=== PATIENT | female | born 1995 | race Caucasian/White ===

== ENCOUNTER 2017-03-09 13:59 | Emergency (ER) | payer OTHER ==
[~2017-03-09] VITALS: Ht 154.9 cm; Wt 76.0 kg
[2017-03-09 14:05] VITALS: Ht 154.9 cm; Wt 76.0 kg
[2017-03-09] MEDS ORDERED: morphine 4 MG/ML VIAL IV STA (14:23)
[2017-03-09] MEDS ORDERED: ONDANSETRON 4 MG INJ IV STA (14:30)
[2017-03-09 14:53] LABS: BASOPHILS % 0.3 % (0.0-2.0); EOSINOPHILS # 0.1 10^3/ul (0.0-0.5); EOSINOPHILS % 1.2 % (0.0-7.0); HEMATOCRIT 39.4 % (37.0-47.0); HEMOGLOBIN 13.7 g/dl (12.0-16.0); LYMPHOCYTES # 2.3 10^3/ul (0.8-2.9); LYMPHOCYTES % 19.7 % (15.0-51.0); MEAN CORPUSCULAR HEMOGLOBIN 30.6 pg (29.0-33.0); MEAN CORPUSCULAR HGB CONC 34.8 g/dl (32.0-37.0); MEAN CORPUSCULAR VOLUME 87.9 fl (82.0-101.0); MEAN PLATELET VOLUME 10.3 fl (7.4-10.4); MONOCYTE # 0.9 10^3/ul (0.3-0.9); MONOCYTES % 7.4 % (0.0-11.0); NEUTROPHIL # 8.3 10^3/ul (1.6-7.5); NEUTROPHILS % 70.9 % (39.0-77.0); PLATELET COUNT 345 10^3/UL (140-415); RED BLOOD COUNT 4.48 10^6/ul (4.20-5.40); RED CELL DISTRIBUTION WIDTH 12.3 % (11.5-14.5); WHITE BLOOD COUNT 11.8 10^3/ul (4.8-10.8)
[2017-03-09 15:10] LABS: ADD UMIC YES; UR ASCORBIC ACID NEGATIVE (NEGATIVE); UR BILIRUBIN (Dip) NEGATIVE (NEGATIVE); UR BLOOD (Dip) 3+ mg/dL (NEGATIVE); UR CLARITY CLOUDY (CLEAR); UR COLOR YELLOW (YELLOW); UR GLUCOSE (Dip) NEGATIVE (NEGATIVE); UR KETONES (Dip) TRACE mg/dL (NEGATIVE); UR LEUKOCYTE ESTERASE (Dip) 2+ Leu/ul (NEGATIVE); UR MUCUS MANY /HPF (NONE SEEN); UR NITRITE (Dip) NEGATIVE (NEGATIVE); UR RBC > 182 /HPF (0-5); UR SPECIFIC GRAVITY (Dip) 1.029 (1.003-1.030); UR SQUAMOUS EPITHELIAL CELL MODERATE /HPF (FEW); UR TOTAL PROTEIN (Dip) 2+ mg/dl (NEGATIVE); UR UROBILINOGEN (Dip) 1+ mg/dL (NEGATIVE)
[2017-03-09 15:30] LABS: ALBUMIN 4.6 g/dl (3.3-4.9); ALBUMIN/GLOBULIN RATIO 1.53; BILIRUBIN,INDIRECT 0.4 mg/dl (0-1.1); BILIRUBIN,TOTAL 0.4 mg/dl (0.2-1.3); CALCIUM 9.6 mg/dl (8.4-10.2); CREATININE 0.73 mg/dl (0.44-1.00); POTASSIUM 3.7 mmol/L (3.5-5.1); TOTAL PROTEIN 7.6 g/dl (6.1-8.1)
--- NOTE | 2017-03-09 16:03 | RADRPT ---
PROCEDURE: CT abdomen and pelvis without contrast. CLINICAL INDICATION: Abdominal pain. TECHNIQUE: CT scan of the abdomen and pelvis without contrast was performed on a multi-slice CT [facility] . Sagittal and coronal reformatted images were obtained from the axial source images. One or more of the following dose reduction techniques were used: - Automated exposure control. - Adjustment of the mA and/or kV according to patient size. - Use of iterative reconstruction technique. DLP 640.6 mGycm. CTDIvol 11.1 mGy COMPARISON: None FINDINGS: The lung bases are clear. There is limited evaluation of the solid viscera from the lack of IV con trast. There is a 2 mm stone in the distal right ureter at the UVJ causing minimal enlargement the right ur eter with trace right-sided perinephric fat stranding. A second nonobstructing right upper pole 2 mm renal stone is also present. Within the left kidney there is a 5 mm stone at the mid kidney which i s nonobstructing. No left-sided ureteral stones or evidence of obstruction is present. There is normal density of the liver with no gross focal lesion or biliary ductal dilatation. The gallbladder is unremarkable without inflammation. The spleen is unremarkable without mass. The adrenal glands are within normal limits without mass. The pancreas is unremarkable without focal lesion or surrounding inflammatory changes. There is no bowel obstruction or focal bowel inflammation. The appendix is unremarkable. There is trace scattered diverticulosis without diverticulitis. There is no free air or free fluid. There a re no enlarged lymph nodes. The aorta is unremarkable and there is no acute osseous abnormality. The uterus and adnexal structures are grossly unremarkable. IMPRESSION: 2 mm distal right ureteral stone at the UVJ causes borderline right-sided ureteral enlargement and t race right-sided perinephric fat stranding. Other nonobstructing bilateral renal calculi are also present. No evidence of bowel obstruction or inflammation. There is no appendicitis. Trace scattered diverti culosis is present without diverticulitis. RPTAT: AA .Jagjit Adair MD, Date Time Electronically viewed and signed by .Jagjit Adair MD, on 03/09/2017 16:03 .J/
[2017-03-09] MEDS ORDERED: CEFTRIAXONE 1 GM/50 ML (PMX) 50 ML IVPB ONE (16:30)
[2017-03-09] MEDS ORDERED: SOD CHLORIDE 0.9% 1,000 ML IV ONE (16:30)
[2017-03-09] MEDS ORDERED: NAPR-260 PO (16:45)
[2017-03-09] MEDS ORDERED: CEPH-443 PO (16:45)
--- NOTE | 2017-03-09 17:43 | ERD ---
ER Documentation Chief Complaint Date/Time DATE: 03/09/17 TIME: 17:40 Chief Complaint Pt with Pelvic pain radiating to R flank x 1hour. HPI 21-year-old female patient with no significant past medical history presents to the ED complaining of right flank pain radiating to her right lower abdomen. Reports that this happened about 1 hour ago. Describes the pain as crampy. Rates the pain a 8 out of 10. Denies any chest pain, shortness of breath, dysuria, nausea, vomiting, diarrhea, constipation, hematuria, urgency, frequency. ROS All systems reviewed and are negative except as per history of present illness. Medications Home Meds Active Scripts Naproxen* (Naprosyn*) 500 Mg Tablet, 500 MG PO BID Y for PAIN AND/OR INFLAMMATION, #30 TAB Prov:JACOBY JOSHI PA-C 03/09/17 Cephalexin* (Keflex*) 500 Mg Capsule, 500 MG PO QID for 7 Days, CAP Prov:JACOBY JOSHI PA-C 03/09/17 PMhx/Soc Medical and Surgical Hx: pt denies Medical Hx, pt denies Surgical Hx Hx Alcohol Use: Yes (SOCIALLY) Hx Substance Use: No Hx Tobacco Use: No Smoking Status: Never smoker Physical Exam Vitals Vital Signs Date Time Temp Pulse Resp B/P Pulse Ox O2 Delivery O2 Flow Rate FiO2 03/09/17 17:45 98.4 75 18 132/82 100 Room Air 03/09/17 14:05 98.2 73 16 154/92 100 Physical Exam Const: [id number], well-nourished. In no acute distress. Head: Atraumatic, normocephalic Eyes: Normal Conjunctiva without injection. No purulent discharge. ENT: Normal external ear, nose. Moist oropharynx without tonsillar exudates. Non -erythematous pharynx. Uvula midline. No drooling. No trismus. Neck: No cervical midline tenderness. Full range of motion. No meningismus. No cervical lymphadenopathy. No JVD. Resp: Clear to auscultation bilaterally. No wheezing, rhonchi, rales, or crackles. No accessory muscle use. No retractions. Cardio: Regular rate and rhythm. No murmurs, rubs or gallops. Abd: Soft, nontender, non distended. Normal bowel sounds. No palpable masses. No rebound tenderness. No guarding. Negative McBurney's point. Negative psoas sign. Negative obturator sign. : See exam in MDM. Skin: No petechiae or rashes Back: No midline tenderness. No CVA tenderness. Ext: No cyanosis, or edema. Neur: Awake and alert. Normal gait. Normal coordination. Psych: Normal Mood and Affect Result Diagram: 03/09/17 1430 03/09/17 1430 Results 24 hrs Laboratory Tests Test 03/09/17 14:30 03/09/17 14:40 White Blood Count 11.810^3/ul Red Blood Count 4.4810^6/ul Hemoglobin 13.7g/dl Hematocrit 39.4% Mean Corpuscular Volume 87.9fl Mean Corpuscular Hemoglobin 30.6pg Mean Corpuscular Hemoglobin Concent 34.8g/dl Red Cell Distribution Width 12.3% Platelet Count 65903^3/UL Mean Platelet Volume 10.3fl Neutrophils % 70.9% Lymphocytes % 19.7% Monocytes % 7.4% Eosinophils % 1.2% Basophils % 0.3% Nucleated Red Blood Cells % 0.0/100WBC Neutrophils # 8.310^3/ul Lymphocytes # 2.310^3/ul Monocytes # 0.910^3/ul Eosinophils # 0.110^3/ul Basophils # 0.010^3/ul Nucleated Red Blood Cells # 0.010^3/ul Sodium Level 141mmol/L Potassium Level 3.7mmol/L Chloride Level 104mmol/L Carbon Dioxide Level 26mmol/L Anion Gap 15 Blood Urea Nitrogen 11mg/dl Creatinine 0.73mg/dl Glucose Level 86mg/dl Calcium Level 9.6mg/dl Total Bilirubin 0.4mg/dl Direct Bilirubin 0.00mg/dl Indirect Bilirubin 0.4mg/dl Aspartate Amino Transf (AST/SGOT) 30IU/L Alanine Aminotransferase (ALT/SGPT) 43IU/L Alkaline Phosphatase 60IU/L Total Protein 7.6g/dl Albumin 4.6g/dl Globulin 3.00g/dl Albumin/Globulin Ratio 1.53 Lipase 86U/L Urine Color YELLOW Urine Clarity CLOUDY Urine pH 5.0 Urine Specific [place] 1.029 Urine Ketones TRACEmg/dL Urine Nitrite NEGATIVEmg/dL Urine Bilirubin NEGATIVEmg/dL Urine Urobilinogen 1+mg/dL Urine Leukocyte Esterase 2+Diallo/ul Urine Microscopic RBC > 182/HPF Urine Microscopic WBC 18/HPF Urine Squamous Epithelial Cells MODERATE/HPF Urine Mucus MANY/HPF Urine Hemoglobin 3+mg/dL Urine Glucose NEGATIVEmg/dL Urine Total Protein 2+mg/dl Current Medications Medications (Trade) Dose Ordered Sig/Tonio Route PRN Reason Start Time Stop Time Status Last Admin Dose Admin Morphine Sulfate (morphine) 4 mg ONCE STAT IV 03/09/17 14:23 03/09/17 14:24 DC 03/09/17 14:46 Ondansetron HCl 4 mg 4 mg ONCE STAT IV 03/09/17 14:30 03/09/17 14:31 DC 03/09/17 14:47 Sodium Chloride 1,000 ml @ 1,000 mls/hr Q1H ONCE IV 03/09/17 16:30 03/09/17 17:29 DC 03/09/17 16:44 Ceftriaxone Sodium (Rocephin) 50 ml @ 100 mls/hr ONCE ONCE IVPB 03/09/17 16:30 03/09/17 16:59 DC 03/09/17 16:44 Procedures/MDM 21-year-old female patient with no significant past medical history presents to the ED complaining of right flank pain radiating to her right lower quadrant. Patient is afebrile and nontoxic-appearing. Patient has normal vital signs. Patient was further worked up with CBC, CMP, lipase, UA, CT of the abdomen and pelvis without contrast. Patient's pain and symptoms have improved after treatment with 1 L normal saline, 4 mg IV morphine, 4 mg IV zofran. CBC: Leukocytosis of 11.8 noted. No e/o anemia. CMP: No e/o severe acidosis, alkalosis, renal failure, diabetic ketoacidosis, liver disease Lipase within normal limits. Urine: 2+ leukocyte esterase with 18 WBC, 3+ hematuria > 182 Urine : Negative PROCEDURE: CT abdomen and pelvis without contrast. CLINICAL INDICATION: Abdominal pain. TECHNIQUE: CT scan of the abdomen and pelvis without contrast was performed on a multi-slice CT scanner . Sagittal and coronal reformatted images were obtained from the axial source images. One or more of the following dose reduction techniques were used: - Automated exposure control. - Adjustment of the mA and/or kV according to patient size. - Use of iterative reconstruction technique. DLP 640.6 mGycm. CTDIvol 11.1 mGy COMPARISON: None FINDINGS: The lung bases are clear. There is limited evaluation of the solid viscera from the lack of IV contrast. There is a 2 mm stone in the distal right ureter at the UVJ causing minimal enlargement the right ureter with trace right-sided perinephric fat stranding. A second nonobstructing right upper pole 2 mm renal stone is also present. Within the left kidney there is a 5 mm stone at the mid kidney which is nonobstructing. No left-sided ureteral stones or evidence of obstruction is present. There is normal density of the liver with no gross focal lesion or biliary ductal dilatation. The gallbladder is unremarkable without inflammation. The spleen is unremarkable without mass. The adrenal glands are within normal limits without mass. The pancreas is unremarkable without focal lesion or surrounding inflammatory changes. There is no bowel obstruction or focal bowel inflammation. The appendix is unremarkable. There is trace scattered diverticulosis without diverticulitis. There is no free air or free fluid. There are no enlarged lymph nodes. The aorta is unremarkable and there is no acute osseous abnormality. The uterus and adnexal structures are grossly unremarkable. IMPRESSION: 2 mm distal right ureteral stone at the UVJ causes borderline right-sided ureteral enlargement and trace right-sided perinephric fat stranding. Other nonobstructing bilateral renal calculi are also present. No evidence of bowel obstruction or inflammation. There is no appendicitis. Trace scattered diverticulosis is present without diverticulitis. Patient has a 2 mm distal right ureteral stone at the UVJ with borderline right- sided ureteral enlargement and trace right-sided perinephric fat stranding. Patient was treated here in the ED with ceftriaxone for nephrolithiasis with a urinary tract infection with 2+ leukocyte esterase with 18 WBC, 3+ hematuria > 182 noted. Low suspicion for ectopic , ovarian torsion, gastritis, GERD , peptic ulcer disease, cholecystitis, choledocholithiasis, cholangitis, pancreatitis, appendicitis, bowel obstruction, ileus, volvulus, nephrolithiasis , pyelonephritis, hepatitis, perforated viscus, diverticulitis, strangulated/ incarcerated hernia, DKA, acute abdomen, mesenteric ischemia or other emergent conditions. Discharge medications: Naproxen, Keflex Follow up with primary care physician in 1-2 days for referral to [facility]aker. Instructed patient to return to the ED sooner for any worsening symptoms. Patient's questions were answered. Patient understood and agreed with discharge plan. Patient discharged stable. Departure Diagnosis: Primary Impression: Right flank pain Additional Impression: Abdominal pain Abdominal location: unspecified location Qualified Code: R10.9 - Abdominal pain, unspecified abdominal location Condition: Stable Patient Instructions: Urinary Tract Infections in Women, Kidney Stone W/ Colic Referrals: [facility] YOU HAVE RECEIVED A MEDICAL SCREENING EXAM AND THE RESULTS INDICATE THAT YOU DO NOT HAVE A CONDITION THAT REQUIRES URGENT TREATMENT IN THE EMERGENCY DEPARTMENT. FURTHER EVALUATION AND TREATMENT OF YOUR CONDITION CAN WAIT UNTIL YOU ARE SEEN IN YOUR DOCTORS OFFICE WITHIN THE NEXT 1-2 DAYS. IT IS YOUR RESPONSIBILITY TO MAKE AN APPOINTMENT FOR FOLOW-UP CARE. IF YOU HAVE A PRIMARY DOCTOR --you should call your primary doctor and schedule an appointment IF YOU DO NOT HAVE A PRIMARY DOCTOR YOU CAN CALL OUR PHYSICIAN REFERRAL HOTLINE AT IF YOU CAN NOT AFFORD TO SEE A PHYSICIAN YOU CAN CHOSE FROM THE FOLLOWING [facility] [address] [employer] [address] [facility] [address] [employer] [facility] [address] [facility] [address] [facility] [address] [facility]. [facility] [address] [facility]. [facility] YOU HAVE RECEIVED A MEDICAL SCREENING EXAM AND THE RESULTS INDICATE THAT YOU DO NOT HAVE A CONDITION THAT REQUIRES URGENT TREATMENT IN THE EMERGENCY DEPARTMENT. FURTHER EVALUATION AND TREATMENT OF YOUR CONDITION CAN WAIT UNTIL YOU ARE SEEN IN YOUR DOCTORS OFFICE WITHIN THE NEXT 1-2 DAYS. IT IS YOUR RESPONSIBILITY TO MAKE AN APPOINTMENT FOR FOLOW-UP CARE. IF YOU HAVE A PRIMARY DOCTOR --you should call your primary doctor and schedule and appointment IF YOU DO NOT HAVE A PRIMARY DOCTOR YOU CAN CALL OUR PHYSICIAN REFERRAL HOTLINE AT . IF YOU CAN NOT AFFORD TO SEE A PHYSICIAN YOU CAN CHOSE FROM THE FOLLOWING [facility] INSTITUTIONS: [facility] [address] [place] [address] [facility] [address] [place] [address] [facility] [address] [place] [address] [facility] URGENT CARE/SPECIALTIES Additional Instructions: Call your primary care doctor TOMORROW for an appointment during the next 2-3 days.See the doctor sooner or return here if your condition worsens before your appointment time. JACOBY JOSHI PA-C Mar 09, 2017 17:43
[2017-03-09 17:45] VITALS: BP 132/82; PULSE 75; RESP 18; TEMP 98.4
== END 2017-03-09 17:45 | disposition home or self-care (01) ==
LOC: FTE 13:59
DX: R10.2 Pelvic and perineal pain (principal)
CPT/HCPCS: 36415; 74176; 80053; 81001; 83690; 85025; 96374; 96375; J0696; J2270; J2405; J7030; Z7502

== ENCOUNTER 2017-06-23 00:14 | Emergency (ER) | END 2017-06-23 03:14 | disposition home or self-care (01) ==